=== PATIENT | female | born 1980 | race Caucasian/White ===

== ENCOUNTER 2018-08-07 19:04 | Emergency (ER) | payer BC ==
[2018-08-07] MEDS ORDERED: KETOROLAC 60 MG INJ IM (20:18)
[2018-08-07] MEDS ORDERED: OXYCODONE/ACETAMINOPHEN (5/325) TAB PO (20:30)
[2018-08-07] MEDS: ONDANSETRON 4 MG INJ IV (20:40)
[2018-08-07] MEDS: morphine 4 MG/ML VIAL IV (20:40)
[2018-08-07 20:44] LABS: ADD MAN DIFF? NO
[2018-08-07 20:46] LABS: WHITE BLOOD COUNT 14.9 10^3/ul (4.8-10.8)
[2018-08-07 20:46] LABS: BASOPHILS % 0.3 % (0.0-2.0); EOSINOPHILS % 0.1 % (0.0-7.0); HEMATOCRIT 35.4 % (37.0-47.0); HEMOGLOBIN 11.5 g/dl (12.0-16.0); LYMPHOCYTES # 2.5 10^3/ul (0.8-2.9); LYMPHOCYTES % 16.6 % (15.0-51.0); MEAN CORPUSCULAR HGB CONC 32.5 g/dl (32.0-37.0); MEAN CORPUSCULAR VOLUME 86.1 fl (82.0-101.0); MEAN PLATELET VOLUME 8.8 fl (7.4-10.4); MONOCYTE # 1.1 10^3/ul (0.3-0.9); MONOCYTES % 7.6 % (0.0-11.0); NEUTROPHIL # 11.1 10^3/ul (1.6-7.5); NEUTROPHILS % 74.3 % (39.0-77.0); PLATELET COUNT 475 10^3/UL (140-415); RED BLOOD COUNT 4.11 10^6/ul (4.20-5.40); RED CELL DISTRIBUTION WIDTH 14.4 % (11.5-14.5)
[2018-08-07 21:06] LABS: ALANINE AMINOTRANSFERASE 24 IU/L (13-69); ALBUMIN 3.7 g/dl (3.3-4.9); ALBUMIN/GLOBULIN RATIO 0.97; ALKALINE PHOSPHATASE 116 IU/L (42-121); ANION GAP 11 (5-13); ASPARTATE AMINO TRANSFERASE 17 IU/L (15-46); BILIRUBIN,INDIRECT 0.1 mg/dl (0-1.1); BILIRUBIN,TOTAL 0.1 mg/dl (0.2-1.3); BLOOD UREA NITROGEN 14 mg/dl (7-20); CALCIUM 9.2 mg/dl (8.4-10.2); CARBON DIOXIDE 23 mmol/L (21-31); CHLORIDE 106 mmol/L (97-110); CREATININE 0.78 mg/dl (0.44-1.00); Estimated GFR > 60 mL/min (>60); GLUCOSE 115 mg/dl (70-220); POTASSIUM 4.3 mmol/L (3.5-5.1); SODIUM 140 mmol/L (135-144); TOTAL PROTEIN 7.5 g/dl (6.1-8.1)
[2018-08-07 21:15] LABS: D-DIMER 1817.38 ng/ml (<460)
[2018-08-07 22:17] LABS: TROPONIN-I < 0.012 ng/ml (0.000-0.120)
[2018-08-07] MEDS: HYDROmorphONE 1 MG/ML SYG IV (22:51)
[2018-08-07] MEDS: SOD CHLORIDE 0.9% 1,000 ML IV (22:51)
[2018-08-07] MEDS: SOD CHLORIDE 0.9% 100 ML (22:55)
[2018-08-07] MEDS: IODIXANOL LOCM 100 ML BTL (22:55)
[2018-08-08] MEDS: HYDROmorphONE 2 MG/ML SYG IV (00:55)
[2018-08-08] MEDS: HYDROmorphONE 1 MG/ML SYG IV (00:58)
== END 2018-08-08 02:54 | disposition home or self-care (01) ==
LOC: FTE 08-08 02:54
DX: S22.39XA Fracture of one rib, unspecified side, initial encounter for closed fracture (principal); R07.89 Other chest pain; X58.XXXA Exposure to other specified factors, initial encounter; Y92.9 Unspecified place or not applicable
CPT/HCPCS: 71045; 71275; 76856; 80053; 81025; 84484; 85025; 85378; 93005; 93971; 96374; 96375; 96376; 99285-25